=== PATIENT | male | born 1990 | race African-American/Black ===

== ENCOUNTER 2017-07-17 07:04 | Emergency (ER) | payer MEDICAID ==
[~2017-07-17] VITALS: Ht 177.8 cm; Wt 150.0 kg
[2017-07-17] MEDS ORDERED: ONDANSETRON HCL 4MG/2ML VIAL IV ONE (08:15)
[2017-07-17] MEDS ORDERED: SODIUM CHLORIDE 0.9% 1,000 ML IV ONE (08:15)
[2017-07-17] MEDS ORDERED: VANCOMYCIN 1 G PREMIX 200 ML IV SCH (08:15)
[2017-07-17] MEDS ORDERED: KETOROLAC 30MG/ML VIAL IV ONE (08:15)
[2017-07-17] MEDS ORDERED: CEFTRIAXONE 1 G PREMIX 50 ML IV ONE (08:15)
[2017-07-17] MEDS ORDERED: PIPERACILLIN/TAZOBACTAM 3.375GM/50ML PREMIX IV ONE (08:30)
[2017-07-17] MEDS ORDERED: PIPERACILLIN/TAZ 3.375G PREMIX 50 ML IV NR (08:30)
[2017-07-17] MEDS ORDERED: HYDROCODONE/ACETAMINOPHEN 10/325MG TABLET PO ONE (11:45)
[2017-07-17 11:55] VITALS: BP 146/67
== END 2017-07-17 12:50 | disposition home or self-care (01) ==
LOC: ER 07:29
DX: H60.91 Unspecified otitis externa, right ear (principal); F17.200 Nicotine dependence, unspecified, uncomplicated; R42 Dizziness and giddiness; R11.10 Vomiting, unspecified
CPT/HCPCS: 36415; 96365; 96366; 96368; 96375; 99285; G0482; J1885; J2405; J2543; J3370; Z7610; J7030

== ENCOUNTER 2017-07-19 02:39 | Emergency (ER) | payer MEDICAID ==
[~2017-07-19] VITALS: Ht 172.7 cm; Wt 172.7 kg
[2017-07-19] MEDS ORDERED: SODIUM CHLORIDE 0.9% 1,000 ML IV ONE (04:08)
[2017-07-19] MEDS ORDERED: ONDANSETRON HCL 4MG/2ML VIAL IV STA (04:08)
[2017-07-19] MEDS ORDERED: TETANUS, DIPHTHERIA, PERTUSSIS VAC/PF 0.5ML (>7YR OLD) IM ONE (04:15)
[2017-07-19] MEDS ORDERED: FENTANYL CITRATE/PF 50MCG/ML 2ML VIAL IV ONE (04:15)
[2017-07-19] MEDS ORDERED: CLINDAMYCIN 600 MG in DEXTROSE 5% WATER 50 ML IV ONE (04:15)
[2017-07-19 04:29] LABS: BASOPHILS % 0.4 % (0.0-2.0); EOSINOPHILS % 0.3 % (0.0-5.0); MEAN CORPUSCULAR HEMOGLOBIN 30.1 pg (28.0-32.0); MEAN CORPUSCULAR VOLUME 83.8 fL (80.0-94.0); MEAN PLATELET VOLUME 9.5 fl (7.4-10.4); MONOCYTES % 9.9 % (2.0-8.0); NEUTROPHILS % 67.4 % (40.0-76.0); PLATELET 121 x1000/uL (130-400); RED BLOOD CELL COUNT 4.65 mill/uL (4.7-6.1); RED CELL DISTRIBUTION WIDTH 13.1 % (11.6-14.6)
[2017-07-19 04:36] LABS: INR 1.1; PROTHROMBIN TIME 11.4 sec (9.4-11.6)
[2017-07-19 04:45] LABS: CARBON DIOXIDE 28 mEq/L (21-32); CHLORIDE 101 mEq/L (98-107); ETHANOL BLOOD < 10 mg/dL
[2017-07-19 04:52] VITALS: BP 179/89
[2017-07-19 05:40] LABS: *AMPHETAMINES SCREEN URINE NEGATIVE (NEGATIVE); *BARBITURATES SCREEN URINE NEGATIVE (NEGATIVE); *BENZODIAZEPINES SCREEN URINE NEGATIVE (NEGATIVE); *COCAINE SCREEN URINE NEGATIVE (NEGATIVE); CANNABINOID URINE SCREEN PRESUMTIVE POSITIVE (NEGATIVE); METHADONE URINE SCREEN NEGATIVE (NEGATIVE); OPIATES URINE SCREEN NEGATIVE (NEGATIVE); PHENCYCLIDINE URINE SCREEN NEGATIVE (NEGATIVE)
== END 2017-07-19 06:25 | disposition home or self-care (01) ==
LOC: ER 03:14
DX: H70.91 Unspecified mastoiditis, right ear (principal); H66.90 Otitis media, unspecified, unspecified ear; Z23 Encounter for immunization; S09.93XA Unspecified injury of face, initial encounter; H93.8X9 Other specified disorders of ear, unspecified ear; S09.8XXA Other specified injuries of head, initial encounter; X58.XXXA Exposure to other specified factors, initial encounter; Y93.9 Activity, unspecified; Y92.9 Unspecified place or not applicable
CPT/HCPCS: 36415; 70450; 70486; 80053; 80305; 83605; 85025; 85610; 87040; 87086; 90471; 90715; 96365; 96375; 99285; G0482; J2405; J3010; J3490; J7030; Z7610; J7060

== ENCOUNTER 2019-01-06 11:03 | Emergency (ER) | payer MEDICAID ==
[~2019-01-06] VITALS: Ht 177.8 cm; Wt 137.0 kg
[2019-01-06] MEDS ORDERED: IBUPROFEN 600MG TABLET PO STA (12:42)
[2019-01-06 13:10] LABS: BASOPHILS % 0.5 % (0.0-2.0); EOSINOPHILS % 0.3 % (0.0-5.0); HEMATOCRIT. 43.2 % (42.0-52.0); HEMOGLOBIN. 14.8 g/dL (14.0-18.0); LYMPHOCYTES % 15.7 % (20.0-50.0); MEAN CORPUSCULAR HEMOGLOBIN 29.9 pg (28.0-32.0); MEAN CORPUSCULAR VOLUME 87.7 fL (80.0-94.0); MEAN PLATELET VOLUME 9.1 fl (7.4-10.4); MONOCYTES % 6.6 % (2.0-8.0); NEUTROPHILS % 76.9 % (40.0-76.0); PLATELET 180 x1000/uL (130-400); RED BLOOD CELL COUNT 4.93 mill/uL (4.7-6.1); RED CELL DISTRIBUTION WIDTH 12.9 % (11.6-14.6)
[2019-01-06 13:14] LABS: CHLORIDE 103 mEq/L (98-107)
[2019-01-06 13:30] VITALS: BP 127/76
== END 2019-01-06 14:10 | disposition home or self-care (01) ==
LOC: ER 11:03
DX: R07.89 Other chest pain (principal); J18.9 Pneumonia, unspecified organism; E66.9 Obesity, unspecified; Z68.41 Body mass index [BMI] 40.0-44.9, adult
CPT/HCPCS: 36415; 71045; 83880; 84484; 93005; 99284

== ENCOUNTER 2023-12-23 15:39 | Emergency (ER) | payer MEDICAID ==
[~2023-12-23] VITALS: Ht 177.8 cm; Wt 200.0 kg
[2023-12-23 15:46] VITALS: TEMP 98.3; O2SAT 94
[2023-12-23] MEDS: DEXAMETHASONE 4MG/ML 1ML VIAL IV ONE (17:02)
[2023-12-23] MEDS: CLONIDINE 0.1MG TABLET PO ONE (17:05)
[2023-12-23] MEDS ORDERED: AMLO10TA80 MT (17:09)
[2023-12-23] MEDS ORDERED: MED4 MT (17:09)
[2023-12-23 17:10] LABS: BASOPHILS % 0.6 % (0.0-2.0); EOSINOPHILS % 1.5 % (0.0-5.0); HEMATOCRIT. 42.2 % (42.0-52.0); HEMOGLOBIN. 14.6 g/dL (14.0-18.0); LYMPHOCYTES % 28.2 % (20.0-50.0); MEAN CORPUSCULAR HGB CONC 34.6 g/dL (31.0-37.0); MEAN CORPUSCULAR VOLUME 86.9 fL (80.0-94.0); MEAN PLATELET VOLUME 10.3 fl (7.4-10.4); MONOCYTES % 8.7 % (2.0-8.0); PLATELET 155 x1000/uL (130-400); RED BLOOD CELL COUNT 4.85 mill/uL (4.7-6.1); RED CELL DISTRIBUTION WIDTH 13.5 % (11.6-14.6); WHITE BLOOD COUNT 8.6 x1000/uL (4.5-11.0)
[2023-12-23 17:17] LABS: CHLORIDE 102 mEq/L (98-107); POTASSIUM 3.9 mEq/L (3.5-5.1); SODIUM 138 mEq/L (136-145)
[2023-12-23 17:18] LABS: CALCIUM 9.2 mg/dL (8.7-10.4); CARBON DIOXIDE 27 mEq/L (21-32)
[2023-12-23 17:23] LABS: CREATININE 0.8 mg/dL (0.6-1.3); GLUCOSE 102 mg/dL (70-105); TROPONIN I HIGH SENSITIVITY 11 ng/L (3.0-53); UREA NITROGEN BLOOD 8 mg/dL (9-23)
[2023-12-23 17:25] LABS: ALANINE AMINOTRANSFERASE 25 IU/L (10-49); ALBUMIN 4.7 g/dL (3.2-4.8); ASPARTATE AMINOTRANSFERASE 36 IU/L (<34); BILIRUBIN TOTAL 0.9 mg/dL (0.1-1.0)
[2023-12-23 17:26] LABS: PROTEIN TOTAL 8.2 g/dL (6.0-8.3)
[2023-12-23 17:33] VITALS: BP 184/110; PULSE 84; RESP 18
== END 2023-12-23 17:58 | disposition home or self-care (01) ==
LOC: ER 15:39
DX: J02.9 Acute pharyngitis, unspecified (principal); I10 Essential (primary) hypertension
CPT/HCPCS: 80053; 83880; 85025; 84484; 36415; 71045; 93005; 96374; 99285; J1100; Z7610